=== PATIENT | female | born 1970 | race American Indian/Alaskan Native ===

== ENCOUNTER 2017-11-08 16:48 | Emergency (ER) | payer SELFPAY ==
[2017-11-08] MEDS ORDERED: ZOFRAN IV ONE (17:08)
[2017-11-08] MEDS ORDERED: KEPPRA 1,000 MG/NS 0.75% 100ML 1,000 MG/100 ML BAG IV ONE (17:08)
--- NOTE | 2017-11-08 17:32 | Emergency Department Report ---
HPI - General Chief Complaint: Seizure Time Seen by Provider: 11/08/17 16:57 - HPI HPI: Room 22 The patient is a 47-year-old female presenting with a chief complaint of seizure. The patient states she had one seizure life in 2010. The patient states this morning she felt nauseous and smelled "unknown scent" I contained to make her more nauseous. The patient states this is similar to the "aura" she had in 2010 before she had her first seizure. Family found the patient on the floor. Patient denies any recent trauma, fever or pain of any type. The patient currently only complains of nauseous and this Location: [employer], see above Duration: [See above] Quality: [See above] Severity: Moderate Modifying factors: [see above] Context: [see above] Mode of transportation: [not driving] ED Past Medical Hx - Past Medical History Hx Hypertension: Yes - Surgical History Past Surgical History?: No Additional Surgical History: ectopic ; tubal ligation - Family History Family history: no significant - Social History Smoking Status: Never Smoker Substance Use Type: None - Medications Home Medications: Home Medications Medication Instructions Recorded Confirmed Last Taken Type cloNIDine [Catapres] 0.2 mg PO BID 05/12/14 05/12/14 Unknown History levETIRAcetam [Keppra TAB] 500 mg PO BID #60 tablet 11/08/17 Unknown Rx ED Review of Systems ROS: Stated complaint: SEIZURE Other details as noted in HPI Constitutional: denies: fever Eyes: denies: eye pain ENT: other ("unknown" smell). denies: ear pain Cardiovascular: denies: chest pain Gastrointestinal: nausea. denies: abdominal pain Genitourinary: denies: dysuria Musculoskeletal: denies: back pain Neurological: denies: headache Physical Exam - Physical Exam Vital Signs: Vital Signs 11/08/17 17:00 Temperature 97.8 F Pulse Rate 103 H Respiratory 16 Rate Blood Pressure 166/96 O2 Sat by Pulse 100 Oximetry Physical Exam: GENERAL: The patient is well-developed well-nourished female lying on stretcher not appearing to be in acute distress. [] HEENT: Normocephalic. Atraumatic. Extraocular motions are intact. Patient has moist mucous membranes. NECK: Supple. No meningitic signs are noted. Trachea midline CHEST/LUNGS: Clear to auscultation. There is no respiratory distress noted. HEART/CARDIOVASCULAR: Regular. There is no tachycardia. There is no gallop rub or murmur. ABDOMEN: Abdomen is soft, nontender. Patient has normal bowel sounds. There is no abdominal distention. SKIN: There is no rash. There is no edema. There is no diaphoresis. NEURO: The patient is awake, alert, and oriented. The patient is cooperative. The patient has no focal neurologic deficits. The patient has normal speech. Cranial nerves II through XII grossly intact no drift, MUSCULOSKELETAL: There is no evidence of acute injury. ED Course Vital Signs 11/08/17 17:00 Temperature 97.8 F Pulse Rate 103 H Respiratory 16 Rate Blood Pressure 166/96 O2 Sat by Pulse 100 Oximetry ED Medical Decision Making - Lab Data Result diagrams: 11/08/17 17:14 11/08/17 17:14 Laboratory Results - last 24 hr 11/08/17 11/08/17 11/08/17 16:59 17:14 17:14 WBC 6.2 RBC 4.56 Hgb 13.5 Hct 39.9 MCV 88 MCH 30 MCHC 34 RDW 14.0 Plt Count 211 Lymph % (Auto) 17.9 [place] % (Auto) 2.7 Eos % (Auto) 0.9 Baso % (Auto) 0.3 Lymph # 1.1 L [place] # 0.2 Eos # 0.1 Baso # 0.0 Seg Neutrophils % 78.2 H Seg Neutrophils # 4.8 Sodium 133 L Potassium 4.4 Chloride 95.3 L Carbon Dioxide 22 Anion Gap 20 BUN 10 Creatinine 0.7 Estimated GFR > 60 BUN/Creatinine Ratio 14 Glucose 148 H POC Glucose 188 H Calcium 8.8 Magnesium 2.40 H Total Creatine Kinase 260 H CK-MB (CK-2) 1.6 CK-MB (CK-2) Rel Index 0.6 Troponin T < 0.010 HCG, Qual Urine Opiates Screen Urine Methadone Screen Ur Barbiturates Screen Ur Phencyclidine Scrn Ur Amphetamines Screen U Benzodiazepines Scrn Urine Cocaine Screen U Marijuana (THC) Screen Drugs of Abuse Note 11/08/17 11/08/17 17:14 17:53 WBC RBC Hgb Hct MCV MCH MCHC RDW Plt Count Lymph % (Auto) [place] % (Auto) Eos % (Auto) Baso % (Auto) Lymph # [place] # Eos # Baso # Seg Neutrophils % Seg Neutrophils # Sodium Potassium Chloride Carbon Dioxide Anion Gap BUN Creatinine Estimated GFR BUN/Creatinine Ratio Glucose POC Glucose Calcium Magnesium Total Creatine Kinase CK-MB (CK-2) CK-MB (CK-2) Rel Index Troponin T HCG, Qual Negative Urine Opiates Screen Presumptive negative Urine Methadone Screen Presumptive negative Ur Barbiturates Screen Presumptive negative Ur Phencyclidine Scrn Presumptive negative Ur Amphetamines Screen Presumptive negative U Benzodiazepines Scrn Presumptive negative Urine Cocaine Screen Presumptive negative U Marijuana (THC) Screen Presumptive negative Drugs of Abuse Note Disclamer - Radiology Data Radiology results: report reviewed (CT head), image reviewed (CT head) FINAL REPORT EXAM: CT HEAD/BRAIN WO CON HISTORY: seizure TECHNIQUE: CT of the head was performed. No intravenous contrast was administered. PRIORS: None. FINDINGS: There is no evidence of intracranial hemorrhage. There is no edema, mass effect or midline shift. There are no abnormal extra-axial fluid collections. The ventricles are appropriate for brain volume. There is no skull fracture seen. The visualized aspects of the sinuses are clear. IMPRESSION: There is no acute intracranial abnormality identified. Transcribed By: DEMETRIS Dictated By: RUSSELL TODD MD Electronically Authenticated By: RUSSELL TODD MD Signed Date/Time: 11/08/171451 DD/ 51 TD/TT: 11/08/171451 - Differential Diagnosis seizure Critical care attestation.: If time is entered above; I have spent that time in minutes in the direct care of this critically ill patient, excluding procedure time. ED Disposition Clinical Impression: Seizure Disposition: DC-01 TO HOME OR SELFCARE Is pt being admited?: No Does the pt Need Aspirin: No Condition: Stable Instructions: Epilepsy (ED), Recurrent Seizures Adult (ED) Additional Instructions: You should not drive, operate heavy machinery or be around large bodies of water unattended until you are cleared by neurologist. Return to the emergency department immediately should you develop worsening symptoms, fever, inability to tolerate food or liquid or any other concerns. Prescriptions: levETIRAcetam [Keppra TAB] 500 mg PO BID #60 tablet Referrals: PRIMARY CARE, [Primary Care Provider] - 3-5 Days JANIS RAUSCH MD [Staff Physician] - [facility] (Dr. Rausch is a neurologist. Please follow up with him for further evaluation) Time of Disposition: 19:26
[2017-11-08 17:35] LABS: Basophils % (Auto) 0.3 % (0.0-1.8); Eosinophils % (Auto) 0.9 % (0.0-4.3); Hematocrit 39.9 % (30.3-42.9); Hemoglobin 13.5 gm/dl (10.1-14.3); Mean Corpuscular HGB Conc 34 % (30-34); Mean Corpuscular Hemoglobin 30 pg (28-32); Mean Corpuscular Volume 88 fl (79-97); Platelet Count 211 K/mm3 (140-440); Red Blood Count 4.56 M/mm3 (3.65-5.03); White Blood Count 6.2 K/mm3 (4.5-11.0)
[2017-11-08 17:49] LABS: Creatine Kinase MB 1.6 ng/mL (0.0-4.0)
[2017-11-08 17:50] LABS: Anion Gap 20 mmol/L; BUN/Creatinine Ratio 14; Blood Urea Nitrogen 10 mg/dL (7-17); Calcium 8.8 mg/dL (8.4-10.2); Carbon Dioxide 22 mmol/L (22-30); Chloride 95.3 mmol/L (98-107); Creatine Kinase 260 units/L (30-135); Glucose 148 mg/dL (65-100); Potassium 4.4 mmol/L (3.6-5.0); Sodium 133 mmol/L (137-145)
[2017-11-08 18:03] LABS: Urine Drugs of Abuse Note Disclamer
[2017-11-08] MEDS ORDERED: TYLENOL PO ONE (18:08)
--- NOTE | 2017-11-08 18:55 | Cat Scan Report ---
FINAL REPORT EXAM: CT HEAD/BRAIN WO CON HISTORY: seizure TECHNIQUE: CT of the head was performed. No intravenous contrast was administered. PRIORS: None. FINDINGS: There is no evidence of intracranial hemorrhage. There is no edema, mass effect or midline shift. There are no abnormal extra-axial fluid collections. The ventricles are appropriate for brain volume. There is no skull fracture seen. The visualized aspects of the sinuses are clear. IMPRESSION: There is no acute intracranial abnormality identified.
[2017-11-08 19:24] VITALS: BP 127/68
== END 2017-11-08 20:04 | disposition home or self-care (01) ==
LOC: ED 16:48
DX: R56.9 Unspecified convulsions (principal); R11.0 Nausea; I10 Essential (primary) hypertension
CPT/HCPCS: 36415; 70450; 80048; 80307; 82550; 82553; 82962; 83735; 84484; 84703; 85025; 93005; 93010; 96374; 96375; 99284; J1953; J2405

== ENCOUNTER 2019-03-16 07:54 | Emergency (ER) | payer SELFPAY ==
[2019-03-16 08:35] LABS: Basophils % (Auto) 0.9 % (0.0-1.8); Eosinophils # (Auto) 0.3 K/mm3 (0.0-0.4); Eosinophils % (Auto) 4.5 % (0.0-4.3); Hematocrit 35.7 % (30.3-42.9); Lymphocytes # (Auto) 1.9 K/mm3 (1.2-5.4); Lymphocytes % (Auto) 33.2 % (13.4-35.0); Mean Corpuscular HGB Conc 34 % (30-34); Mean Corpuscular Volume 83 fl (79-97); Monocytes # (Auto) 0.3 K/mm3 (0.0-0.8); Monocytes % (Auto) 4.8 % (0.0-7.3); Platelet Count 239 K/mm3 (140-440); Red Blood Count 4.27 M/mm3 (3.65-5.03); Red Cell Distribution Width 15.4 % (13.2-15.2)
[2019-03-16 08:53] LABS: BUN/Creatinine Ratio 16; Blood Urea Nitrogen 11 mg/dL (7-17); Hemolysis Index 6
--- NOTE | 2019-03-16 10:28 | Emergency Department Report ---
ED General Adult HPI - General Chief complaint: Weakness Stated complaint: SOB/WEAKNESS Time Seen by Provider: 03/16/19 08:25 Source: patient Mode of arrival: Ambulatory Limitations: No Limitations - History of Present Illness Initial comments: This is a pleasant 48-year-old female, who is not known to this provider previously. She does not have a local primary care doctor. She has a past medical history of hypertension, seizure disorder, obesity, and former tobacco user, now she does not smoke. The patient presents to the emergency room today with complaints of painless shortness of breath, weakness and fatigue. This has been going on for over a month. It may be going on for much longer than that. The patient denies chest pain. She denies abdominal pain. She reports that she is not . She does not take oral contraceptives. She denies DVT, pulmonary embolus risk factors. She describes nontraumatic lower back pain, intermittent over the past few months, now resolved. On further questioning, she reports that she snores quite a bit at night, and she reports that bed partners and informed her that she snores. She has rest less legs at night, and reports a sensation of incomplete sleep when waking up. She reports tired and sleepiness during the day, and reports that she might fall asleep while watching TV, or sitting in front of her computer. As far's the patient knows, she's not had a formal sleep study. She does not have a formal diagnosis of sleep apnea that she is aware of. -: Gradual, week(s), month(s) Location: back Radiation: non-radiation Consistency: intermittent, now resolved Improves with: other Worsens with: other Associated Symptoms: shortness of breath - Related Data Home Medications Medication Instructions Recorded Confirmed Last Taken cloNIDine [Catapres] 0.2 mg PO BID 05/12/14 05/12/14 Unknown Previous Rx's Medication Instructions Recorded Last Taken Type levETIRAcetam [Keppra TAB] 500 mg PO BID #60 tablet 11/08/17 Unknown Rx Allergies Allergy/AdvReac Type Severity Reaction Status Date / Time No Known Allergies Allergy Verified 05/13/14 00:39 ED Review of Systems ROS: Stated complaint: SOB/WEAKNESS Other details as noted in HPI Constitutional: malaise. denies: fever Eyes: denies: eye discharge ENT: denies: epistaxis Respiratory: shortness of breath Cardiovascular: denies: chest pain Gastrointestinal: denies: abdominal pain, nausea, vomiting Genitourinary: denies: dysuria Musculoskeletal: back pain Skin: denies: lesions Neurological: weakness ED Past Medical Hx - Past Medical History Previous Medical History?: Yes Hx Hypertension: Yes Hx Seizures: Yes (Takes Keppra) - Surgical History Past Surgical History?: Yes Additional Surgical History: ectopic ; tubal ligation - Social History Smoking Status: Former Smoker Substance Use Type: None - Medications Home Medications: Home Medications Medication Instructions Recorded Confirmed Last Taken Type cloNIDine [Catapres] 0.2 mg PO BID 05/12/14 05/12/14 Unknown History levETIRAcetam [Keppra TAB] 500 mg PO BID #60 tablet 11/08/17 Unknown Rx ED Physical Exam - General Limitations: No Limitations General appearance: alert, in no apparent distress, obese - Head Head exam: Present: atraumatic, normocephalic - Eye Eye exam: Present: normal appearance, EOMI - ENT ENT exam: Present: normal exam, normal orophraynx, mucous membranes moist, normal external ear exam - Neck Neck exam: Present: normal inspection, full ROM. Absent: tenderness, meningismus - Respiratory Respiratory exam: Present: normal lung sounds bilaterally. Absent: respiratory distress - Cardiovascular Cardiovascular Exam: Present: regular rate, normal rhythm, normal heart sounds. Absent: bradycardia, tachycardia, irregular rhythm, systolic murmur, diastolic murmur, rubs, gallop - GI/Abdominal GI/Abdominal exam: Present: soft. Absent: distended, tenderness, guarding, rebound, rigid, pulsatile mass - Extremities Exam Extremities exam: Present: normal inspection, full ROM, other (2+ pulses noted in the bilateral upper, lower extremities. Compartments soft. No long bony tenderness. The pelvis is stable.). Absent: pedal edema, joint swelling, calf tenderness - Back Exam Back exam: Present: normal inspection, full ROM. Absent: tenderness, CVA tenderness (R), CVA tenderness (L), paraspinal tenderness, vertebral tenderness - Neurological Exam Neurological exam: Present: alert, oriented X3, normal gait, other (Extraocular movements intact. Tongue midline. No facial droop. Facial sensation intact to light touch in the V1, V2, V3 distribution bilaterally. 5 and 5 strength in 4 extremities.. Sensation is intact to light touch in 4 extremities.). Absent: motor sensory deficit - Psychiatric Psychiatric exam: Present: normal affect, normal mood - Skin Skin exam: Present: warm, dry, intact, normal color. Absent: rash ED Course Vital Signs 03/16/19 03/16/19 03/16/19 08:03 08:34 08:45 Temperature 98 F Pulse Rate 103 H 89 92 H Respiratory 18 10 L 11 L Rate Blood Pressure 158/93 143/91 O2 Sat by Pulse 103 H 98 97 Oximetry 03/16/19 03/16/19 03/16/19 09:00 09:15 09:30 Temperature Pulse Rate 94 H 87 Respiratory 11 L 11 L Rate Blood Pressure 136/83 139/85 138/89 O2 Sat by Pulse 97 96 95 Oximetry 03/16/19 03/16/19 03/16/19 09:45 10:00 10:15 Temperature Pulse Rate Respiratory Rate Blood Pressure 139/85 149/92 135/76 O2 Sat by Pulse 98 99 100 Oximetry 03/16/19 03/16/19 10:30 10:45 Temperature Pulse Rate Respiratory Rate Blood Pressure 138/67 156/83 O2 Sat by Pulse 100 100 Oximetry ED Medical Decision Making - Lab Data Result diagrams: 03/16/19 08:26 03/16/19 08:26 Vital Signs 03/16/19 03/16/19 03/16/19 08:03 08:34 08:45 Temperature 98 F Pulse Rate 103 H 89 92 H Respiratory 18 10 L 11 L Rate Blood Pressure 158/93 143/91 O2 Sat by Pulse 103 H 98 97 Oximetry 03/16/19 03/16/19 03/16/19 09:00 09:15 09:30 Temperature Pulse Rate 94 H 87 Respiratory 11 L 11 L Rate Blood Pressure 136/83 139/85 138/89 O2 Sat by Pulse 97 96 95 Oximetry 03/16/19 03/16/19 03/16/19 09:45 10:00 10:15 Temperature Pulse Rate Respiratory Rate Blood Pressure 139/85 149/92 135/76 O2 Sat by Pulse 98 99 100 Oximetry 03/16/19 03/16/19 10:30 10:45 Temperature Pulse Rate Respiratory Rate Blood Pressure 138/67 156/83 O2 Sat by Pulse 100 100 Oximetry Lab Results 03/16/19 03/16/19 Range/Units 08:26 08:26 WBC 5.7 (4.5-11.0) K/mm3 RBC 4.27 (3.65-5.03) M/mm3 Hgb 12.0 (10.1-14.3) gm/dl Hct 35.7 (30.3-42.9) % MCV 83 (79-97) fl MCH 28 (28-32) pg MCHC 34 (30-34) % RDW 15.4 H (13.2-15.2) % Plt Count 239 (140-440) K/mm3 Lymph % (Auto) 33.2 (13.4-35.0) % [place] % (Auto) 4.8 (0.0-7.3) % Eos % (Auto) 4.5 H (0.0-4.3) % Baso % (Auto) 0.9 (0.0-1.8) % Lymph # 1.9 (1.2-5.4) K/mm3 [place] # 0.3 (0.0-0.8) K/mm3 Eos # 0.3 (0.0-0.4) K/mm3 Baso # 0.0 (0.0-0.1) K/mm3 Seg Neutrophils % 56.6 (40.0-70.0) % Seg Neutrophils # 3.2 (1.8-7.7) K/mm3 Sodium 137 (137-145) mmol/L Potassium 4.1 (3.6-5.0) mmol/L Chloride 103.2 (98-107) mmol/L Carbon Dioxide 20 L (22-30) mmol/L Anion Gap 18 mmol/L BUN 11 (7-17) mg/dL Creatinine 0.7 (0.7-1.2) mg/dL Estimated GFR > 60 ml/min BUN/Creatinine Ratio 16 % Glucose 98 (65-100) mg/dL Calcium 9.0 (8.4-10.2) mg/dL Troponin T < 0.010 (0.00-0.029) ng/mL - EKG Data -: EKG Interpreted by Nm EKG shows normal: sinus rhythm Rate: normal - EKG Data 03/16/19 11:28 EKG shows a normal sinus rhythm, 85 beats minute, normal axis, QTC within normal limits, low voltage, not consistent with ST elevation myocardial infarction, appears unchanged from prior EKG from April 2014. Next - Radiology Data Radiology results: report reviewed, image reviewed Print Report Referring Physician: KERA RODRIGUEZ Patient Name: NICK COREY Date of : 1970 Sex: Female Report Date: 2019-03-16 Report Status: Finalized Findings [facility] [address] [place] [address] XRay Report Signed Patient: NICK COREY MR#: [id number] : 1970 Acct:[id number] Age/Sex: 48 / F ADM Date: 03/16/19 Loc: ED Attending Dr: Ordering Physician: KERA RODRIGUEZ MD Date of Service: 03/16/19 Procedure(s): XR chest routine 2V Accession Number(s): [id number] cc: KERA RODRIGUEZ MD Fluoro Time In Minutes: CHEST 2 VIEWS INDICATION: Shortness of breath, cough. COMPARISON: 05/12/2014 FINDINGS: PA and lateral chest radiographs demonstrate stable cardiomediastinal silhouette/slight cardiomegaly, unchanged dating back to October 2011 at this institution. Clear lungs. Unremarkable bones. EKG leads. CONCLUSION: No significant interval change, as described. Please correlate. Thank you for the opportunity to participate in this patient's care. Transcribed By: RS Dictated By: TONEY NOEL MD Electronically Authenticated By: TONEY NOEL MD Signed Date/Time: 03/16/19 1103 - Medical Decision Making Differential diagnosis, including but not limited to: Obstructive sleep apnea, pulmonary hypertension, physical deconditioning, pneumonia Assessment and plan: 48-year-old female who is obese, with nonspecific shortness of breath present for a few weeks to a few months. The patient is afebrile with reassuring vital signs. She is currently resting currently, on a cellular phone, playing and calling and texting, and does not appear to be in any acute distress. The patient reports no pulmonary embolus or DVT risk factors, and she is low risk by well's criteria. Based off of the history and physical, I suspect the patient has undiagnosed obstructive sleep apnea. A troponin is sent prior to my evaluation, and as per the [employer] clinical policy, myocardial infarction may be excluded with 1 set of cardiac enzymes if symptoms have been present for greater than 8 hours. The patient is at low risk for major adverse cardiac events currently. The patient was counseled to lose weight, participate in diet and lifestyle modifications, and she will be referred to outpatient primary care, cardiology, and sleep specialty medicine. Return precautions are reviewed. The patient has verbalized understanding. Critical care attestation.: If time is entered above; I have spent that time in minutes in the direct care of this critically ill patient, excluding procedure time. ED Disposition Clinical Impression: Shortness of breath Disposition: DC-01 TO HOME OR SELFCARE Is pt being admited?: No Does the pt Need Aspirin: No Condition: Stable Instructions: Snoring (ED), Apnea Monitors (ED) Additional Instructions: As we discussed, symptoms likely coming from obstructive sleep apnea. First line treatment for this is typically diet, weight loss, and lifestyle modification. Avoid consumption of heavy, spicy foods, sugary drinks, and foods rich in simple carbohydrates and sugars. Participate in physical activity, gym as tolerated. Please follow-up with a primary care doctor for routine health maintenance within the next 4-6 weeks. I recommend the patient follow up with a pulmonary doctor or sleep Dr. within the next 2 weeks. Local sleep specialists include Drs. Rolle and Dileep Patient may also consider following up with an outpatient social media marketing specialist, within the next month, if her sleep study is nondiagnostic. Please return to the emergency room right away with new, worsening or different symptoms. Referrals: EYAL DIAMOND MD [Staff Physician] - 3-5 Days ELIZABETH ROLLE MD [Staff Physician] - 3-5 Days [facility] [Provider Group] - 3-5 Days [facility] [Provider Group] - 3-5 Days
--- NOTE | 2019-03-16 11:04 | XRay Report ---
CHEST 2 VIEWS INDICATION: Shortness of breath, cough. COMPARISON: 05/12/2014 FINDINGS: PA and lateral chest radiographs demonstrate stable cardiomediastinal silhouette/slight cardiomegaly, unchanged dating back to October 2011 at this institution. Clear lungs. Unremarkable bones. EKG leads. CONCLUSION: No significant interval change, as described. Please correlate. Thank you for the opportunity to participate in this patient's care.
[2019-03-16] MEDS ORDERED: TYLENOL PO ONE (11:13)
[2019-03-16 11:15] VITALS: BP 156/83
== END 2019-03-16 12:02 | disposition home or self-care (01) ==
LOC: ED 07:54
DX: R06.02 Shortness of breath (principal); R53.1 Weakness; R53.83 Other fatigue
CPT/HCPCS: 36415; 71046; 80048; 84484; 85025; 93005; 93010

== ENCOUNTER 2020-02-08 09:14 | Emergency (ER) | payer SELFPAY ==
[2020-02-08 09:24] VITALS: BP 137/85
--- NOTE | 2020-02-08 09:59 | XRay Report ---
CHEST 1 VIEW INDICATION: SOB. COMPARISON: 03/16/2019 FINDINGS: Support devices: None. Heart: Within normal limits. Lungs/Pleura: There is poor inspiration but subtle scattered focal airspace opacities are suggested i n the lower lung zones, left greater than right. These could represent developing infiltrates or segm ental atelectasis. No consolidation, pleural effusion or pneumothorax. Additional findings: None. IMPRESSION: Bibasilar opacities as described. Correlate with the patient's clinical presentation. Signer Name: Bassam Green Jr, MD Signed: 02/08/2020 9:55 AM Workstation Name: [id number]
[2020-02-08 10:36] LABS: Hemoglobin 12.6 gm/dl (10.1-14.3); Mean Corpuscular HGB Conc 33 % (30-34); Mean Corpuscular Volume 86 fl (79-97); Platelet Count 258 K/mm3 (140-440); Red Cell Distribution Width 13.9 % (13.2-15.2)
[2020-02-08 11:05] LABS: BUN/Creatinine Ratio 17; Blood Urea Nitrogen 12 mg/dL (7-17); Calcium 9.3 mg/dL (8.4-10.2); Hemolysis Index 32
--- NOTE | 2020-02-08 11:24 | Emergency Department Report ---
- General Chief Complaint: Upper Respiratory Infection Stated Complaint: SOB, COUGH, DIZZY Time Seen by Provider: 02/08/20 10:20 Source: patient Mode of arrival: Ambulatory Limitations: No Limitations - History of Present Illness Initial Comments: 49-year-old -F[place]ian female with a past medical history of hypertension presents to the emergency room stating she has been sick for about 1 week. Patient reports fever shortness of breath cough since . Patient states her shortness of breath is worse with exertion. Patient states she was having body aches chills fever and mild nausea. Patient denies any abdominal pain chest pain diarrhea. Patient reports reports no travel. Patient is a [employer] HEL[employer] in a [employer] where she had a patient recently of respiratory distress and Covid-19 testing is pending for her patient. MD Complaint: fever, cough, other (Shortness of breath) Onset/Timin -: days(s) Severity scale (0 -10): 0 Consistency: intermittent Improves With: nothing Worsens With: activity Context: sick contacts, other (Possible bailey exposure) Associated Symptoms: fever, chills, cough, shortness of breath, nausea. denies: rhinorrhea, nasal congestion, sore throat, vomiting, diarrhea Treatments Prior to Arrival: none - Related Data Home Medications Medication Instructions Recorded Confirmed Last Taken cloNIDine [Catapres] 0.2 mg PO BID 05/12/14 05/12/14 Unknown Previous Rx's Medication Instructions Recorded Last Taken Type levETIRAcetam [Keppra TAB] 500 mg PO BID #60 tablet 11/08/17 Unknown Rx Azithromycin [Zithromax Z-MARIBEL] 250 mg PO DAILY #6 tab 02/08/20 Unknown Rx Allergies Allergy/AdvReac Type Severity Reaction Status Date / Time No Known Allergies Allergy Verified 05/13/14 00:39 ED Review of Systems ROS: Stated complaint: SOB, COUGH, DIZZY Other details as noted in HPI Comment: All other systems reviewed and negative ED Past Medical Hx - Past Medical History Hx Hypertension: Yes Hx Seizures: Yes (Takes Keppra) - Surgical History Additional Surgical History: ectopic ; tubal ligation - Social History Smoking Status: Never Smoker - Medications Home Medications: Home Medications Medication Instructions Recorded Confirmed Last Taken Type cloNIDine [Catapres] 0.2 mg PO BID 05/12/14 05/12/14 Unknown History levETIRAcetam [Keppra TAB] 500 mg PO BID #60 tablet 11/08/17 Unknown Rx Azithromycin [Zithromax Z-MARIBEL] 250 mg PO DAILY #6 tab 02/08/20 Unknown Rx ED Physical Exam - General Limitations: No Limitations General appearance: alert, in no apparent distress - Head Head exam: Present: atraumatic, normocephalic - Eye Eye exam: Present: normal appearance - ENT ENT exam: Present: mucous membranes moist - Neck Neck exam: Present: normal inspection - Respiratory Respiratory exam: Present: normal lung sounds bilaterally. Absent: respiratory distress - Cardiovascular Cardiovascular Exam: Present: regular rate, normal rhythm. Absent: systolic murmur, diastolic murmur, rubs, gallop - GI/Abdominal GI/Abdominal exam: Present: soft, normal bowel sounds - Extremities Exam Extremities exam: Present: normal inspection - Back Exam Back exam: Present: normal inspection - Neurological Exam Neurological exam: Present: alert, oriented X3 - Psychiatric Psychiatric exam: Present: normal affect, normal mood - Skin Skin exam: Present: warm, dry, intact, normal color. Absent: rash ED Course Vital Signs 02/08/20 09:22 Temperature 98.0 F Pulse Rate 84 Respiratory 20 Rate Blood Pressure 137/85 [Left] O2 Sat by Pulse 94 Oximetry ED Medical Decision Making - Lab Data Result diagrams: 02/08/20 10:19 02/08/20 10:19 - Radiology Data Radiology results: report reviewed - Medical Decision Making 49-year-old -Fijian female with a past medical history of hypertension presents to the emergency room stating she has been sick for about 1 week. Patient reports fever shortness of breath cough since . Patient states her shortness of breath is worse with exertion. Patient states she was having body aches chills fever and mild nausea. Patient denies any abdominal pain chest pain diarrhea. Patient reports reports no travel. Patient is a [employer] HEL[employer] in a [employer] where she had a patient recently of respiratory distress and Covid-19 testing is pending for her patient. Chest x-ray shows bilateral opacities, patient has mild neutropenic at 3.6, negative influenza. Patient satting at 98% but when she does walk she drops down to 94% room air. Patient case was discussed with Dr. Quesada he recommends patient to be discharged quarantine for 14 days placed on a azithromycin and to return to the emergency room if her symptoms persist or gets worse. Critical care attestation.: If time is entered above; I have spent that time in minutes in the direct care of this critically ill patient, excluding procedure time. ED Disposition Clinical Impression: Shortness of breath on exertion, Contact with and (suspected) exposure to other viral communicable diseases Pneumonia Qualifiers: Pneumonia type: due to unspecified organism Laterality: bilateral Lung location: lower lobe of lung Qualified Code(s): J18.9 - Pneumonia, unspecified organism Disposition: DC- TO HOME OR SELFCARE Is pt being admited?: No Does the pt Need Aspirin: No Condition: Stable Instructions: Bacterial Pneumonia (ED) Additional Instructions: Please complete antibiotics as prescribed. Continue with [id number] cough medication. You most likely be contacted by public health department for screening for coronavirus. You are being placed on another 14-day quarantine. Prescriptions: Azithromycin [Zithromax Z-MARIBEL] 250 mg PO DAILY #6 tab Referrals: PRIMARY CARE, [Primary Care Provider] - 3-5 Days Forms: Work/School Release Form(ED)
[2020-02-08 12:54] LABS: Total Cells Counted 100
[2020-02-08 12:55] LABS: Basophils % (Manual) 0 % (0.0-1.8); Platelet Estimate Consistent w Auto
[2020-02-08 12:57] LABS: RBC Morphology Normal
== END 2020-02-08 13:18 | disposition home or self-care (01) ==
LOC: ED 09:14
DX: J18.9 Pneumonia, unspecified organism (principal); Z20.828 Contact with and (suspected) exposure to other viral communicable diseases
CPT/HCPCS: 36415; 71045; 80048; 85007; 85027; 87400; 99284

== ENCOUNTER 2020-08-19 12:11 | Emergency (ER) | payer SELFPAY ==
[2020-08-19 12:31] VITALS: BP 156/93
--- NOTE | 2020-08-19 13:02 | XRay Report ---
RIGHT ANKLE 3 VIEW(S) INDICATION / CLINICAL INFORMATION: Right ankle pain COMPARISON: None available. FINDINGS: BONES / JOINT(S): Age indeterminate mildly displaced Estrada type B fracture of distal fibula. Old avul luis fracture fragments inferior to medial malleolus. No significant arthritis. SOFT TISSUES: Moderate medial and lateral ankle soft tissue swelling. ADDITIONAL FINDINGS: Mild post inflammatory calcaneal enthesophyte at the attachment of plantar tendo n aponeurosis. Signer Name: Shemar Bear MD Signed: 08/19/2020 12:58 PM Workstation Name: [id number]
--- NOTE | 2020-08-19 13:29 | Emergency Department Report ---
ED Lower Extremity HPI - General Chief Complaint: Extremity Injury, Lower Stated Complaint: RT FOOT INJURY Source: patient Mode of arrival: Ambulatory Limitations: No Limitations - History of Present Illness Initial Comments: 49 y/o female comes in for right ankle injury 1 day ago. Reports that she slipped down 4 stepped and landed all her weight on her right ankle. Patient c /o pain swelling and difficulty in bearing weight. Hx/o of right anle injury 10 years ago. Complaint: ankle injury Onset/Timin -: days(s) Injury: Ankle: Right Type of Injury: inversion Place: home Severity scale (0 -10): 9 - Related Data Home Medications Medication Instructions Recorded Confirmed Last Taken cloNIDine [Catapres] 0.2 mg PO BID 05/12/14 05/12/14 Unknown Previous Rx's Medication Instructions Recorded Last Taken Type levETIRAcetam [Keppra TAB] 500 mg PO BID #60 tablet 11/08/17 Unknown Rx Azithromycin [Zithromax Z-MARIBEL] 250 mg PO DAILY #6 tab 02/08/20 Unknown Rx HYDROcodone/APAP 7.5-325 [[place] 1 each PO Q6HR PRN #12 tablet 08/19/20 Unknown Rx 7.5-325 mg TAB] Ibuprofen [Motrin 600 MG tab] 600 mg PO Q8H PRN #30 tablet 08/19/20 Unknown Rx Allergies Allergy/AdvReac Type Severity Reaction Status Date / Time No Known Allergies Allergy Verified 08/19/20 12:28 ED Review of Systems ROS: Stated complaint: RT FOOT INJURY Other details as noted in HPI Comment: All other systems reviewed and negative ED Past Medical Hx - Past Medical History Hx Hypertension: Yes Hx Seizures: Yes (Takes Keppra) - Surgical History Additional Surgical History: ectopic ; tubal ligation - Social History Smoking Status: Never Smoker Substance Use Type: Alcohol - Medications Home Medications: Home Medications Medication Instructions Recorded Confirmed Last Taken Type cloNIDine [Catapres] 0.2 mg PO BID 05/12/14 05/12/14 Unknown History levETIRAcetam [Keppra TAB] 500 mg PO BID #60 tablet 11/08/17 Unknown Rx Azithromycin [Zithromax Z-MARIBEL] 250 mg PO DAILY #6 tab 02/08/20 Unknown Rx HYDROcodone/APAP 7.5-325 [[place] 1 each PO Q6HR PRN #12 tablet 08/19/20 Unknown Rx 7.5-325 mg TAB] Ibuprofen [Motrin 600 MG tab] 600 mg PO Q8H PRN #30 tablet 08/19/20 Unknown Rx ED Physical Exam - General Limitations: No Limitations General appearance: alert, in no apparent distress - Head Head exam: Present: atraumatic, normocephalic - Eye Eye exam: Present: normal appearance - ENT ENT exam: Present: mucous membranes moist - Neck Neck exam: Present: normal inspection - Expanded Lower Extremity Exam Right Hip exam: Present: full ROM Upper Leg exam: Present: normal inspection, full ROM Knee exam: Present: normal inspection, full ROM Lower Leg exam: Present: normal inspection, full ROM Ankle exam: Present: tenderness, swelling. Absent: full ROM Foot/Toe exam: Present: normal inspection, tenderness, swelling Neuro vascular tendon exam: Present: no vascular compromise - Neurological Exam Neurological exam: Present: alert, oriented X3 - Psychiatric Psychiatric exam: Present: normal affect, normal mood - Skin Skin exam: Present: warm, dry, intact, normal color. Absent: rash ED Course Vital Signs 08/19/20 12:30 Temperature 98.0 F Pulse Rate 81 Respiratory 20 Rate Blood Pressure 156/93 O2 Sat by Pulse 98 Oximetry ED Lower Extremity MDM - Radiology Data Radiology results: report reviewed Patient: NICK COREY MR#: [id number] : 1970 Acct:[id number] Age/Sex: 49 / F ADM Date: 08/19/20 Loc: ED Attending Dr: Ordering Physician: ANDREW BENITO MD Date of Service: 08/19/20 Procedure(s): XR ankle 3+V RT Accession Number(s): [id number] cc: ED MD JIGNA Fluoro Time In Minutes: RIGHT ANKLE 3 VIEW(S) INDICATION / CLINICAL INFORMATION: Right ankle pain COMPARISON: None available. FINDINGS: BONES / JOINT(S): Age indeterminate mildly displaced Estrada type B fracture of distal fibula. Old avulsion fracture fragments inferior to medial malleolus. No significant arthritis. SOFT TISSUES: Moderate medial and lateral ankle soft tissue swelling. ADDITIONAL FINDINGS: Mild post inflammatory calcaneal enthesophyte at the attachment of plantar tendon aponeurosis. Signer Name: Shemar Bear MD Signed: 08/19/2020 12:58 PM Workstation Name: [id number] Transcribed By: TL Dictated By: Shemar Bear MD Electronically Authenticated By: Shemar Bear MD Signed Date/Time: 08/19/20 1258 DD/ 1257 TD/TT: - Medical Decision Making 49 y/o female comes in for right ankle injury 1 day ago. Reports that she slipped down 4 stepped and landed all her weight on her right ankle. Patient c/o pain swelling and difficulty in bearing weight. Hx/o of right anle injury 10 years ago. Xray show a fracture ankle. Will place on splint, [place] and Ibuprofen. Patient will be discharge on [place] and ibuprofen and referred to orthopedic Critical care attestation.: If time is entered above; I have spent that time in minutes in the direct care of this critically ill patient, excluding procedure time. ED Disposition Clinical Impression: Closed right ankle fracture Disposition: DC-01 TO HOME OR SELFCARE Is pt being admited?: No Does the pt Need Aspirin: No Condition: Stable Instructions: Ankle Fracture (ED), Crutch Instructions (ED) Additional Instructions: fracture right ankle Take pain medication and follow up with a orthopedic provider. Do not operate heavy machinery while taking [place]. Prescriptions: Ibuprofen [Motrin 600 MG tab] 600 mg PO Q8H PRN #30 tablet PRN Reason: Pain, Mild (1-3) HYDROcodone/APAP 7.5-325 [[place] 7.5-325 mg TAB] 1 each PO Q6HR PRN #12 tablet PRN Reason: Pain , Severe (7-10) Referrals: DANIELLE MCCALLUM MD [Staff Physician] - 3-5 Days Forms: Work/School Release Form(ED)
[2020-08-19] MEDS ORDERED: HYDROcodone/ACETAMINOPHEN 7.5-325MG TAB PO ONE (13:31)
[2020-08-19] MEDS ORDERED: IBUPROFEN 600 MG TAB PO ONE (13:31)
== END 2020-08-19 14:38 | disposition home or self-care (01) ==
LOC: ED 12:11
DX: S82.891A Other fracture of right lower leg, initial encounter for closed fracture (principal); I10 Essential (primary) hypertension; Z86.69 Personal history of other diseases of the nervous system and sense organs; Z79.899 Other long term (current) drug therapy; W18.30XA Fall on same level, unspecified, initial encounter; Y93.89 Activity, other specified; Y92.89 Other specified places as the place of occurrence of the external cause; Y99.8 Other external cause status
CPT/HCPCS: 99283

== ENCOUNTER 2021-01-07 09:30 | Emergency (ER) | payer SELFPAY ==
--- NOTE | 2021-01-07 10:21 | Event Note ---
ED Screening Note Date of service: 01/07/21 Time: 10:20 ED Screening Note: 50-year-old female with a past medical history of hypertension presents to the ER today complaint of abnormal vaginal bleeding. Patient states that her menstrual cycle started in the beginning of November. She bled normally during her period. She states that she had no bleeding for week, then the bleeding started again. She states that the bleeding has been fluctuating sometimes light sometimes spotting to heavy bleeding with clots. She reports associated intermittent cramping. She states that she does not have insurance and therefore has not been able to follow-up with an [employer]. She is not on any control. Denies any bleeding or clotting disorders. She states that she came in today because she started to feel generally weak and fatigued. This initial assessment/diagnostic orders/clinical plan/treatment(s) is/are subject to change based on patients health status, clinical progression and re- assessment by fellow clinical providers in the ED. Further treatment and workup at subsequent clinical providers discretion. Patient/guardian urged not to elope from the ED as their condition may be serious if not clinically assessed and managed. Initial orders include: CBC, CMP, hCG, UA
[2021-01-07 11:27] LABS: Bilirubin,Urine NEG (Negative); Blood,Urine LG (Negative); Color,Urine Red (Yellow); Urobilinogen,Urine < 2.0 mg/dL (<2.0); WBC,Urine < 1.0 /HPF (0.0-6.0)
[2021-01-07] MEDS ORDERED: ONDANSETRON 4 MG ODT TAB PO ONE (11:34)
[2021-01-07] MEDS ORDERED: KETOROLAC 10 MG TAB PO ONE (11:34)
--- NOTE | 2021-01-07 11:39 | Emergency Department Report ---
ED General Adult HPI - General Chief complaint: Vaginal Bleeding Stated complaint: VAGINAL BLEEDING Time Seen by Provider: 01/07/21 10:10 Source: patient Mode of arrival: Ambulatory Limitations: No Limitations - History of Present Illness Initial comments: The patient presents to the emergency department with a chief complaint of vaginal bleeding x1 month. Patient states that she has never had bleeding for this length of time in the past. Patient is concerned that she may be going through menopause she denies any [place] abdominal pain, chest pain, shortness of breath. -: Gradual, week(s) Severity scale (0 -10): 0 Consistency: constant Improves with: none Worsens with: none Associated Symptoms: nausea/vomiting (Patient complains of some nausea but denies vomiting) Treatments Prior to Arrival: none - Related Data Home Medications Medication Instructions Recorded Confirmed Last Taken cloNIDine [Catapres] 0.2 mg PO BID 05/12/14 05/12/14 Unknown Previous Rx's Medication Instructions Recorded Last Taken Type levETIRAcetam [Keppra TAB] 500 mg PO BID #60 tablet 11/08/17 Unknown Rx Azithromycin [Zithromax Z-MARIBEL] 250 mg PO DAILY #6 tab 02/08/20 Unknown Rx HYDROcodone/APAP 7.5-325 [[place] 1 each PO Q6HR PRN #12 tablet 08/19/20 Unknown Rx 7.5-325 mg TAB] Ibuprofen [Motrin 600 MG tab] 600 mg PO Q8H PRN #30 tablet 08/19/20 Unknown Rx medroxyPROGESTERone ACETATE 2.5 mg PO DAILY 10 Days #10 tablet 01/07/21 Unknown Rx [Provera] Allergies Allergy/AdvReac Type Severity Reaction Status Date / Time No Known Allergies Allergy Verified 08/19/20 12:28 ED Review of Systems ROS: Stated complaint: VAGINAL BLEEDING Other details as noted in HPI Comment: All other systems reviewed and negative Constitutional: denies: chills, fever Eyes: denies: eye pain, eye discharge, vision change ENT: denies: ear pain, throat pain Respiratory: denies: cough, shortness of breath, wheezing Cardiovascular: denies: chest pain, palpitations Endocrine: no symptoms reported Gastrointestinal: denies: abdominal pain, nausea, diarrhea Genitourinary: abnormal menses. denies: urgency, dysuria, discharge Musculoskeletal: denies: back pain, joint swelling, arthralgia Skin: denies: rash, lesions Neurological: denies: headache, weakness, paresthesias Psychiatric: denies: anxiety, depression Hematological/Lymphatic: denies: easy bleeding, easy bruising ED Past Medical Hx - Past Medical History Previous Medical History?: Yes Hx Hypertension: Yes Hx Seizures: Yes (Takes Keppra) - Surgical History Past Surgical History?: Yes Additional Surgical History: ectopic ; tubal ligation - Social History Smoking Status: Never Smoker Substance Use Type: None - Medications Home Medications: Home Medications Medication Instructions Recorded Confirmed Last Taken Type cloNIDine [Catapres] 0.2 mg PO BID 05/12/14 05/12/14 Unknown History levETIRAcetam [Keppra TAB] 500 mg PO BID #60 tablet 11/08/17 Unknown Rx Azithromycin [Zithromax Z-MARIBEL] 250 mg PO DAILY #6 tab 02/08/20 Unknown Rx HYDROcodone/APAP 7.5-325 [[place] 1 each PO Q6HR PRN #12 tablet 08/19/20 Unknown Rx 7.5-325 mg TAB] Ibuprofen [Motrin 600 MG tab] 600 mg PO Q8H PRN #30 tablet 08/19/20 Unknown Rx medroxyPROGESTERone ACETATE 2.5 mg PO DAILY 10 Days #10 tablet 01/07/21 Unknown Rx [Provera] ED Physical Exam - General Limitations: No Limitations General appearance: alert, in no apparent distress - Head Head exam: Present: atraumatic, normocephalic - Eye Eye exam: Present: normal appearance, PERRL, EOMI - ENT ENT exam: Present: mucous membranes moist - Neck Neck exam: Present: normal inspection - Respiratory Respiratory exam: Present: normal lung sounds bilaterally. Absent: respiratory distress - Cardiovascular Cardiovascular Exam: Present: regular rate, normal rhythm. Absent: systolic murmur, diastolic murmur, rubs, gallop - GI/Abdominal GI/Abdominal exam: Present: soft, normal bowel sounds. Absent: distended, tenderness - Extremities Exam Extremities exam: Present: normal inspection - Back Exam Back exam: Present: normal inspection - Neurological Exam Neurological exam: Present: alert, oriented X3, CN II-XII intact. Absent: motor sensory deficit - Psychiatric Psychiatric exam: Present: normal affect, normal mood - Skin Skin exam: Present: warm, dry, intact, normal color. Absent: rash ED Course Vital Signs 01/07/21 01/07/21 10:01 12:09 Temperature 97.9 F 98.1 F Pulse Rate 67 58 L Respiratory 18 18 Rate Blood Pressure 142/88 134/71 [Right] O2 Sat by Pulse 97 99 Oximetry ED Medical Decision Making - Lab Data Result diagrams: 01/07/21 11:43 01/07/21 11:43 Lab Results 01/07/21 01/07/21 01/07/21 Range/Units 10:32 11:43 11:43 WBC 6.0 (4.5-11.0) K/mm3 RBC 4.50 (3.65-5.03) M/mm3 Hgb 13.1 (10.1-14.3) gm/dl Hct 39.9 (30.3-42.9) % MCV 89 (79-97) fl MCH 29 (28-32) pg MCHC 33 (30-34) % RDW 15.0 (13.2-15.2) % Plt Count 218 (140-440) K/mm3 Lymph % (Auto) 27.5 (13.4-35.0) % Clay % (Auto) 4.1 (0.0-7.3) % Eos % (Auto) 2.4 (0.0-4.3) % Baso % (Auto) 0.7 (0.0-1.8) % Lymph # (Auto) 1.7 (1.2-5.4) K/mm3 Clay # (Auto) 0.2 (0.0-0.8) K/mm3 Eos # (Auto) 0.1 (0.0-0.4) K/mm3 Baso # (Auto) 0.0 (0.0-0.1) K/mm3 Seg Neutrophils % 65.3 (40.0-70.0) % Seg Neutrophils # 3.9 (1.8-7.7) K/mm3 PT (12.2-14.9) Sec. INR (0.87-1.13) APTT (24.2-36.6) Sec. Sodium 138 (137-145) mmol/L Potassium 4.6 (3.6-5.0) mmol/L Chloride 102.5 (98-107) mmol/L Carbon Dioxide 27 (22-30) mmol/L Anion Gap 13 mmol/L BUN 14 (7-17) mg/dL Creatinine 0.7 (0.6-1.2) mg/dL Estimated GFR > 60 ml/min BUN/Creatinine Ratio 20 % Glucose 143 H (65-100) mg/dL Calcium 9.1 (8.4-10.2) mg/dL Total Bilirubin 0.20 (0.1-1.2) mg/dL AST 47 H (5-40) units/L ALT 60 H (7-56) units/L Alkaline Phosphatase 94 (35-129) units/L Total Protein 7.8 (6.3-8.2) g/dL Albumin 4.3 (3.9-5) g/dL Albumin/Globulin Ratio 1.2 % HCG, Qual (Negative) Urine Color Red (Yellow) Urine Turbidity Clear (Clear) Urine pH 6.0 (5.0-7.0) Ur Specific [place] 1.005 (1.003-1.030) Urine Protein 100 mg/dl (Negative) mg/dL Urine Glucose (UA) Neg (Negative) mg/dL Urine Ketones Neg (Negative) mg/dL Urine Blood Lg (Negative) Urine Nitrite Neg (Negative) Urine Bilirubin Neg (Negative) Urine Urobilinogen < 2.0 (<2.0) mg/dL Ur Leukocyte Esterase Neg (Negative) Urine WBC (Auto) < 1.0 (0.0-6.0) /HPF Urine RBC (Auto) 57.0 (0.0-6.0) /HPF U Epithel Cells (Auto) 2.0 (0-13.0) /HPF 01/07/21 01/07/21 Range/Units 11:43 11:43 WBC (4.5-11.0) K/mm3 RBC (3.65-5.03) M/mm3 Hgb (10.1-14.3) gm/dl Hct (30.3-42.9) % MCV (79-97) fl MCH (28-32) pg MCHC (30-34) % RDW (13.2-15.2) % Plt Count (140-440) K/mm3 Lymph % (Auto) (13.4-35.0) % Clay % (Auto) (0.0-7.3) % Eos % (Auto) (0.0-4.3) % Baso % (Auto) (0.0-1.8) % Lymph # (Auto) (1.2-5.4) K/mm3 Clay # (Auto) (0.0-0.8) K/mm3 Eos # (Auto) (0.0-0.4) K/mm3 Baso # (Auto) (0.0-0.1) K/mm3 Seg Neutrophils % (40.0-70.0) % Seg Neutrophils # (1.8-7.7) K/mm3 PT 12.2 (12.2-14.9) Sec. INR 0.92 (0.87-1.13) APTT 25.2 (24.2-36.6) Sec. Sodium (137-145) mmol/L Potassium (3.6-5.0) mmol/L Chloride (98-107) mmol/L Carbon Dioxide (22-30) mmol/L Anion Gap mmol/L BUN (7-17) mg/dL Creatinine (0.6-1.2) mg/dL Estimated GFR ml/min BUN/Creatinine Ratio % Glucose (65-100) mg/dL Calcium (8.4-10.2) mg/dL Total Bilirubin (0.1-1.2) mg/dL AST (5-40) units/L ALT (7-56) units/L Alkaline Phosphatase (35-129) units/L Total Protein (6.3-8.2) g/dL Albumin (3.9-5) g/dL Albumin/Globulin Ratio % HCG, Qual Negative (Negative) Urine Color (Yellow) Urine Turbidity (Clear) Urine pH (5.0-7.0) Ur Specific [place] (1.003-1.030) Urine Protein (Negative) mg/dL Urine Glucose (UA) (Negative) mg/dL Urine Ketones (Negative) mg/dL Urine Blood (Negative) Urine Nitrite (Negative) Urine Bilirubin (Negative) Urine Urobilinogen (<2.0) mg/dL Ur Leukocyte Esterase (Negative) Urine WBC (Auto) (0.0-6.0) /HPF Urine RBC (Auto) (0.0-6.0) /HPF U Epithel Cells (Auto) (0-13.0) /HPF - Radiology Data Radiology results: report reviewed - Medical Decision Making Discussed results with patient Critical care attestation.: If time is entered above; I have spent that time in minutes in the direct care of this critically ill patient, excluding procedure time. ED Disposition Clinical Impression: DUB (dysfunctional uterine bleeding) Disposition: TO HOME OR SELFCARE Is pt being admited?: No Does the pt Need Aspirin: No Condition: Stable Instructions: Abnormal Uterine Bleeding Additional Instructions: return if worse Prescriptions: medroxyPROGESTERone ACETATE [Provera] 2.5 mg PO DAILY 10 Days #10 tablet Referrals: PRIMARY CAREMD [Primary Care Provider] - 3-5 Days [facility] [Provider Group] - 3-5 Days [facility] [Provider Group] - 3-5 Days [facility] [Provider Group] - 3-5 Days Time of Disposition: 13:23
[2021-01-07 12:00] LABS: Basophils % (Auto) 0.7 % (0.0-1.8); Eosinophils # (Auto) 0.1 K/mm3 (0.0-0.4); Eosinophils % (Auto) 2.4 % (0.0-4.3); Hematocrit 39.9 % (30.3-42.9); Hemoglobin 13.1 gm/dl (10.1-14.3); Lymphocytes # (Auto) 1.7 K/mm3 (1.2-5.4); Lymphocytes % (Auto) 27.5 % (13.4-35.0); Mean Corpuscular HGB Conc 33 % (30-34); Mean Corpuscular Volume 89 fl (79-97); Monocytes # (Auto) 0.2 K/mm3 (0.0-0.8); Monocytes % (Auto) 4.1 % (0.0-7.3); Platelet Count 218 K/mm3 (140-440)
[2021-01-07 12:10] LABS: INR 0.92 (0.87-1.13); Partial Thromboplastin Time 25.2 Sec. (24.2-36.6)
[2021-01-07 12:12] VITALS: BP 134/71
[2021-01-07 12:17] LABS: Alanine Aminotransferase 60 units/L (7-56); Albumin 4.3 g/dL (3.9-5); BUN/Creatinine Ratio 20; Blood Urea Nitrogen 14 mg/dL (7-17); Calcium 9.1 mg/dL (8.4-10.2); Hemolysis Index 3
--- NOTE | 2021-01-07 13:07 | Ultrasound Report ---
Transabdominal pelvic Ultrasound HISTORY: dysfunctional vaginal bleeding. TECHNIQUE: Grayscale and color imaging performed. COMPARISON: None FINDINGS: Uterus measures 8.3 x 4.1 x 4.7 cm with endometrial echo complex measuring 5 mm. Ovaries ar e both normal in size. There is a hypoechoic avascular structure in the right measuring 2.4 cm which likely represents a simple or functional cyst. No pelvic free fluid identified. IMPRESSION: Right-sided ovarian cyst as above. Otherwise unremarkable exam. Signer Name: Dash Garcia MD Signed: 01/07/2021 1:02 PM Workstation Name: [id number]
== END 2021-01-07 13:38 | disposition home or self-care (01) ==
LOC: ED 09:30
DX: N93.8 Other specified abnormal uterine and vaginal bleeding (principal); I10 Essential (primary) hypertension; Z86.69 Personal history of other diseases of the nervous system and sense organs; Z98.890 Other specified postprocedural states; Z98.51 Tubal ligation status
CPT/HCPCS: 36415; 76856; 80053; 81001; 84703; 85025; 85610; 85730; Q0162

== ENCOUNTER 2021-11-18 15:03 | Emergency (ER) | payer SELFPAY ==
[2021-11-18 15:33] VITALS: BP 153/75
--- NOTE | 2021-11-19 12:11 | Electrocardiograph Report ---
[facility] Test Date: 2021-11-18 Test Time: 15:34:16 Pat Name: NICK COREY Department: Room: Gender: F Practice Or Student Teacher: ZAINAB : 1970 Requested By: EMIL SOLIZ Order Number: [id number] Reading MD: Wilfredo Rothman Measurements Intervals [place] Rate: 56 P: 21 NM: 187 QRS: 10 QRSD: 78 T: QT: 440 QTc: 426 Interpretive Statements Sinus bradycardia Low voltage, precordial leads Consider old anterior infarct No previous ECG available for comparison Electronically Signed On 11-19-2021 12:10:52 EST by Wilfredo Rothman
== END 2021-11-19 01:22 | disposition left against medical advice (07) ==
LOC: ED 15:03
DX: R07.9 Chest pain, unspecified (principal); Z53.21 Procedure and treatment not carried out due to patient leaving prior to being seen by health care provider
CPT/HCPCS: 93005